=== PATIENT | male | born 2000 | race Two or more races ===

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

== ENCOUNTER 2019-05-04 17:53 | Emergency (ER) | payer BC ==
--- OUTSIDE RECORDS SUMMARY | 2019-05-04 18:35 | XMS REPORT | Continuity of Care Document ---
:2000 External Reference #:[id number] Author Name Mackenzie Blackwell NP (transmitted by agent of provider Jcarlos Jovel) Address [address] [place] [id number] Care Team Providers Name Role Phone ManfredZarina DO - Family Medicine Care Team Information Job Interviewer [phone] Problems Active Problems Provider Date Exercise-induced asthma Mackenzie Blackwell NP Onset: 04/20/2019 Uncomplicated moderate persistent asthma Jcarlos Jovel MD Onset: 12/2018 Allergic rhinitis Jcarlos Jovel MD Onset: 12/08/2018 Allergic rhinitis due to pollen Jcarlos Jovel MD Onset: 12/08/2018 Social History Type Date Description Comments Sex Unknown Tobacco Use Start: Unknown Patient has never smoked Tobacco Use Start: Unknown No Second Hand Smoke Exposure Smoking Status Reviewed: 02/07/19 No Second Hand Smoke Exposure Allergies, Adverse Reactions, Alerts Description No Known Drug Allergies Medications Active Medications SIG Qnty Indications Ordering Provider Date Qvar Redihaler inhale 2 puffs 10.600gm J30.1 Mackenzie Blackwell NP 02/07/2019 twice a day. 80mcg/Act Aerosol rinse mouth after use. Mometasone Furoate Use 2 Sprays In 17Spray Roque Ortega, 12/25/2018 Each Nostril RPA-C 50mcg/Act Every Day Suspension Xyzal Allergy 24HR 1 tab by mouth 30tabs J30.1 Jcarlos Juárez 12/21/2018 every day as MD Med 5mg Tablets needed Proair HFA 2 puffs every 4 25.5gm J30.1 Jcarlos Cisse. 12/08/2018 as needed MD Med 108(90Base) mcg/Act Aerosol Albuterol Sulfate Unknown HFA 108(90Base) mcg/Act Aerosol History Medications Mometasone Furoate Use 2 Sprays In 17Spray Roque Ortega, 12/22/2018 - Each Nostril Every RPA-C 12/25/2018 50mcg/Act Day Suspension Nasonex 2 intranasal puffs 1units J30.1 Jcarlos Juárez 12/08/2018 - 50mcg/Act every day MD Med 12/22/2018 Suspension Xyzal 1 tab by mouth 30tabs J30.1 Jcarlos Juárez 12/08/2018 - 5mg Tablets every day as MD Med 12/21/2018 needed Breo Ellipta inhale one puff 60units J30.1 Jcarlos uJárez 12/08/2018 - once a day MD Med 02/07/2019 200-25mcg/Inh Aerosol Immunizations Description No Information Available Vital Signs Date Vital Result Comment 04/20/2019 8:15am BP Systolic 114 mmHg BP Diastolic 88 mmHg Height 64 inches 5'4" Weight 134.00 lb BMI (Body Mass Index) 23.0 kg/m2 Heart Rate 67 /min Respiratory Rate 16 /min Body Temperature 97.8 F O2 % BldC Oximetry 98 % 02/07/2019 8:25am BP Systolic 115 mmHg BP Diastolic 76 mmHg Height 64 inches 5'4" Weight 134.00 lb BMI (Body Mass Index) 23.0 kg/m2 Heart Rate 68 /min Respiratory Rate 17 /min Body Temperature 98.5 F O2 % BldC Oximetry 97 % Results Description No Information Available Procedures Date Code Description Status 04/20/2019 41768 Nitric Oxide Gas Determination Completed 04/20/2019 35453 Bronchodilation Responsiveness Spirometry Pre/Post Completed Bronchodil Adm 02/07/2019 62184 Nitric Oxide Gas Determination Completed 02/07/2019 91846 Bronchodilation Responsiveness Spirometry Pre/Post Completed Bronchodil Adm 12/08/2018 21303 Nitric Oxide Gas Determination Completed 12/08/2018 61210 Allergy Tests Percutaneous W/ Allergenic Extracts Completed 12/08/2018 85361 Demonstration/Eval,Of Patient Utilization Of Completed Aerosol,Nebulizer 12/08/2018 62492 Bronchodilation Responsiveness Spirometry Pre/Post Completed Bronchodil Adm Medical Devices Description No Information Available Encounters Type Date Location Provider Dx Diagnosis Office Visit 04/20/2019 8:30a Ascencion Blackwell NP J30.1 Allergic rhinitis due to pollen J45.40 Moderate persistent asthma, uncomplicated J45.990 Exercise induced bronchospasm Office Visit 02/07/2019 8:30a [facility] JOSIANE Sánchez J30.1 Allergic rhinitis due to pollen J30.89 Other allergic rhinitis J45.40 Moderate persistent asthma, uncomplicated Office Visit 12/08/2018 2:00p [facility] Jcarlos Jovel J30.1 Allergic rhinitis MD due to pollen J30.89 Other allergic rhinitis J45.40 Moderate persistent asthma, uncomplicated Assessments Date Code Description Provider 04/20/2019 J30.1 Allergic rhinitis due to pollen Mackenzie Blackwell NP 04/20/2019 J45.40 Moderate persistent asthma, uncomplicated Mackenzie Blackwell NP 04/20/2019 J45.990 Exercise induced bronchospasm Mackenzie Blackwell NP 02/07/2019 J30.1 Allergic rhinitis due to pollen JOSIANE Sánchez 02/07/2019 J30.89 Other allergic rhinitis JOSIANE Sánchez 02/07/2019 J45.40 Moderate persistent asthma, uncomplicated JOSIANE Sánchez 12/08/2018 J30.1 Allergic rhinitis due to pollen Jcarlos Jovel MD 12/08/2018 J30.89 Other allergic rhinitis Jcarlos Jovel MD 12/08/2018 J45.40 Moderate persistent asthma, uncomplicated Jcarlos Jovel MD Plan of Treatment Future Appointment(s):10/22/2019 3:30 pm - Slime Cuello RPA-[facility] at [id number]/20/2019 - Mackenzie Blackwell NPJ30.1 Allergic rhinitis due to pollenComments:Patient presents with past medical history of allergic rhinitis, he is well controlled with Xyzal 5 mg daily. He has not had any breakthrough symptoms. No adverse side effects from the medication, and denies epistaxis, decreased smell, or change in taste.J45.40 Moderate persistent asthma, uncomplicatedComments:PFT was normal, NiOx 39 PPB, prior on 02/07/19 NiOx was 14. Patient states no increase in asthma symptoms. No changes in treatment plan. Medications were reviewed, and QVAR RX renewed. Follow up in sixmonths. Greater than 50% of the 15-minute visit was spent in discussion of the testing results and treatment options.J45.990 Exercise induced bronchospasm Functional Status Description No Information Available Mental Status Description No Information Available Referrals Description No Information Available
--- NOTE | 2019-05-04 18:56 | ED ---
Lower Extremity - HPI Summary HPI Summary: 18-year-old male presents to the emergency department today complaining of right knee pain. Patient states he was running approximately 1 week ago when he had lateral right knee pain. Patient was seen at [facility] and had x- rays done which were negative for fracture. Patient has been taking ibuprofen for pain. Patient was scheduled for MRI however he came into the emergency department today because he had increased pain to the right knee endorsing 7 out of 10 pain. Patient is able to ambulate. Patient has full range of motion of the right knee and is neurovascularly intact. Patient is otherwise well and denies fever, chest and abdominal pain, urination, nausea, vomiting and diarrhea. No obvious deformity, edema, erythema. Patient has a knee brace on. - History of Current Complaint Chief Complaint: EDExtremityLower Stated Complaint: RT KNEE PAIN PER PT Time Seen by Provider: 05/04/19 18:41 Hx Obtained From: Patient Onset of Pain: Immediate Onset/Duration: Days Severity Initially: Severe Severity Currently: Severe Pain Intensity: 8 Pain Scale Used: 0-10 Numeric Timing: Constant Location: Is Discrete @ - right knee Character Of Pain: Aching Associated Signs And Symptoms: Positive: Knee Pain. Negative: Swelling, Redness , Bruising, Fever Aggravating Factor(s): Standing, Ambulation, Movement, Weight Bearing Alleviating Factor(s): Rest, Elevation Able to Bear Weight: Yes - Allergies/Home Medications Allergies/Adverse Reactions: Allergies Allergy/AdvReac Type Severity Reaction Status Date / Time No Known Allergies Allergy Verified 05/04/19 17:59 Home Medications: Home Medications Albuterol 2.5MG/3ML (0.083%)* [Ventolin 2.5 MG/3 ML NEB.SABINO*] 2.5 mg INH Q6H PRN #60 neb.sabino 08/30/18 [Rx] Pseudoephedrine TAB* [Sudafed TAB*] 60 mg PO BID #10 tab 08/30/18 [Rx] predniSONE 50 mg TAB [Deltasone 50 mg TAB] 50 mg PO DAILY #5 tab 08/30/18 [Rx] PMH/Surg Hx/FS Hx/Imm Hx Endocrine/Hematology History: Denies: Hx Diabetes Cardiovascular History: Denies: Hx Coronary Artery Disease Respiratory History: Reports: Hx Asthma Infectious Disease History: No Infectious Disease History: Denies: Traveled Outside the [place] in Last 30 Days - Family History Known Family History: Negative: Cardiac Disease - Social History Alcohol Use: None Hx Substance Use: No Substance Use Type: Reports: None Smoking Status (MU): Never Smoked Tobacco Review of Systems Constitutional: Negative Eyes: Negative ENT: Negative Cardiovascular: Negative Respiratory: Negative Gastrointestinal: Negative Genitourinary: Negative Positive: Arthralgia Skin: Negative Neurological/Mental Status: Negative Psychological: Normal All Other Systems Reviewed And Are Negative: Yes Physical Exam - Summary Physical Exam Summary: Patient is no acute distress. There is no obvious deformity, erythema, ecchymosis, edema to the knee. Patient's range of motion at the knees bilaterally. There is no pain with valgus or varus stress. Anterior posterior drawer. Negative Hollie's test. Patient is able to ambulate. Patient is neurovascularly intact. Triage Information Reviewed: Yes Vital Signs On Initial Exam: Initial Vitals Temp Pulse Resp BP Pulse Ox 98.8 F 78 16 124/90 97 05/04/19 17:56 05/04/19 17:56 05/04/19 17:56 05/04/19 17:56 05/04/19 17:56 Vital Signs Reviewed: Yes Appearance: Positive: Well-Appearing, No Pain Distress, Well-Nourished Skin: Positive: Warm, Skin Color Reflects Adequate Perfusion Eyes: Positive: EOMI, ETTA ENT: Positive: Hearing grossly normal Respiratory/Lung Sounds: Positive: Clear to Auscultation, Breath Sounds Present Cardiovascular: Positive: RRR, S1, S2 Abdomen Description: Positive: Nontender, Soft Bowel Sounds: Positive: Present Musculoskeletal: Positive: Strength/ROM Intact Neurological: Positive: Sensory/Motor Intact, Alert, Oriented to Person Place, Time, Normal Gait, Facial Symmetry, Speech Normal Psychiatric: Positive: Normal, Affect/Mood Appropriate AVPU Assessment: Alert Procedures - Sedation Patient Received Moderate/Deep Sedation with Procedure: No Diagnostics - Vital Signs Vital Signs Temp Pulse Resp BP Pulse Ox 05/04/19 17:56 98.8 F 78 16 124/90 97 - Laboratory Lab Statement: Any lab studies that have been ordered have been reviewed, and results considered in the medical decision making process. Lower Extremity Course/Dx - Course Course Of Treatment: Patient evaluated emergency department today for knee pain. Patient had x-rays done recently which showed no evidence of fracture. Physical exam is not consistent with any concerning findings including ACL or PCL instability. No fracture or deformity. Patient was given crutches in the emergency department and told to follow-up with orthopedics for possible MRI evaluation. Patient discharged to outpatient follow-up. - Diagnoses Differential Diagnosis/HQI/PQRI: Positive: Arthritis, Fracture (Closed), Sprain , Strain Provider Diagnoses: Right knee pain Discharge ED - Sign-Out/Discharge Documenting (check all that apply): Patient Departure - Discharge Plan Condition: Stable Disposition: HOME Patient Education Materials: Knee Pain (ED) Referrals: No Primary Care Phys,NOPCP [Primary Care Provider] - Paulino De Los Santos MD [Medical Doctor] - 5 Days Additional Instructions: * Knee brace for your comfort and to allow for immobilization during this time to prevent re-injury. * Ibuprofen 600mg three times daily with meals for pain. * Follow up with orthopedic physician in 5-7 days. * If numbness, tingling or decreased sensation develop, you notice color changes in your fingers or pain is worsening, come back to ED immediately for re -evaluation. * Protect the area. For your comfort level, do not bear weight, pull or push until you can injury is somewhat healed. This may involve the need for immobilization or crutches for a period of time. * Rest the involved area, but not too long. You may need to be off your injury for some time to allow for healing, however excessive immobilization of joints can lead to stiffness and delay healing time. Early mobilization is encouraged if it is pain-free. * Ice. Not directly on the skin. Cover with a towel. Apply ice no more than 30 minutes at a time * Compression: You may use and keep an lg wrap bandage over the injury to decrease swelling. Again, this should be limited and be taken off periodically to encourage early range of motion and mobilization. * Elevate: Try to elevate the injured area above the heart whenever possible * * Use crutches for your comfort. - Billing Disposition and Condition Condition: STABLE Disposition: Home
[2019-05-04 19:33] VITALS: BP 124/80
== END 2019-05-04 19:32 | disposition home or self-care (01) ==
LOC: ED 17:53
DX: M25.561 Pain in right knee (principal)
CPT/HCPCS: 99282